=== PATIENT | female | born 1980 | race Caucasian/White ===

== ENCOUNTER 2020-08-18 08:34 | Day surgery (SDC) | payer MEDICAID ==
[2020-08-18] VITALS (9 sets, daily range): BP systolic 112–130; BP diastolic 66–83
[~2020-08-18] VITALS: Ht 160 cm; Wt 77.2 kg
[2020-08-18] MEDS ORDERED: ceFAZolin 2gm in dextrose, iso 50 ML IV ONE ×2 (09:00→11:38)
[2020-08-18] MEDS ORDERED: ALBU8.5H8 IH (09:30)
[2020-08-18] MEDS ORDERED: ALLERGY INJECTIONS IM (09:30)
[2020-08-18] MEDS ORDERED: KETOROLAC EACHEYE (09:30)
[2020-08-18] MEDS ORDERED: ALB0.5UD IH (09:30)
[2020-08-18] MEDS ORDERED: MONT10TA32 PO (09:30)
[2020-08-18] MEDS ORDERED: CETI10TA18 PO (09:30)
[2020-08-18] MEDS ORDERED: normal saline 1000ml 1,000 ML IV SCH ×2 (09:55→14:00)
[2020-08-18 10:22] LABS: BASOPHILS % (AUTO) 0.6 % (0-1); EOSINOPHILS # (AUTO) 0.1 X10'3 (0-0.9); EOSINOPHILS % (AUTO) 0.8 % (0-6); HEMATOCRIT 38.1 % (35.0-45.0); HEMOGLOBIN 12.7 g/dl (12.0-16.0); LYMPHOCYTES # (AUTO) 1.9 X10'3 (1.1-4.8); LYMPHOCYTES % (AUTO) 24.2 % (21-51); MEAN CORPUSCULAR HEMOGLOBIN 29.6 PG (27.0-31.0); MEAN CORPUSCULAR HGB CONC 33.4 g/dL (33.0-36.5); MEAN CORPUSCULAR VOLUME 88.6 FL (78-98); MEAN PLATELET VOLUME 9.4 FL (7.4-10.4); MONOCYTES # (AUTO) 0.5 X10'3 (0-0.9); MONOCYTES % (AUTO) 5.9 % (2-12); NEUTROPHILS # (AUTO) 5.3 X10'3 (1.8-7.7); NEUTROPHILS % (AUTO) 68.5 % (42-75); PLATELET COUNT 165 X10'3 (140-440); RED CELL DISTRIBUTION WIDTH 13.8 % (11.5-14.5); WHITE BLOOD COUNT 7.7 X10'3 (4.5-11.0)
[2020-08-18 10:32] LABS: ALBUMIN 3.5 G/DL (3.4-5.0); ANION GAP 10 (8-16); BLOOD UREA NITROGEN 12 MG/DL (7-18); BUN/CREATININE RATIO 14.5 (6.6-38.0); CALCIUM 8.3 MG/DL (8.5-10.1); CHLORIDE 106 MMOL/L (99-107); CREATININE 0.83 MG/DL (0.40-0.90); GLUCOSE 102 MG/DL (70-104); MAGNESIUM 2.2 MG/DL (1.5-2.4); POTASSIUM 3.9 MMOL/L (3.5-5.1); SODIUM 141 MMOL/L (135-145); TOTAL CARBON DIOXIDE 25.4 MMOL/L (24-32); eGFR 76 ML/MIN
[2020-08-18] MEDS ORDERED: fentaNYL/PF 50MCG/1 ML 2ML syringe ONE (11:38)
[2020-08-18] MEDS ORDERED: midazolam 1 mg/ML 2ml injection ONE ×4 (11:38→12:39)
[2020-08-18] MEDS ORDERED: ceFAZolin 1000mg inj ONE (11:39)
[2020-08-18] MEDS ORDERED: LIDOcaine 1% W/epiNEPHrine 1:100,000 20ml vial ONE (11:39)
--- NOTE | 2020-08-18 11:50 | NUR ---
Patient to [employer] for pacemaker insertion.
[2020-08-18] MEDS ORDERED: metoprolol tartrate 1mg/ml inj IV ONE ×2 (12:30→12:44)
--- NOTE | 2020-08-18 13:35 | NUR ---
Patient arrived back to room following pacemaker insertion. Dressing to left upper chest CDI, no bleeding or hematoma noted. VSS. Patient alert and oriented x4.
[2020-08-18] MEDS ORDERED: HYDROcodone/acetaminophen 5mg/325mg tablet PO PRN (14:00)
[2020-08-18] MEDS ORDERED: HYDROcodone/acetaminophen 10/325mg tab PO PRN (14:00)
[2020-08-18] MEDS ORDERED: ketorolac tromethamine 15mg/ml inj. IV ONE (14:20)
--- NOTE | 2020-08-18 15:55 | NUR ---
Called nette Lepe to d/c patient
--- NOTE | 2020-08-18 16:00 | NUR ---
D/C'd PIV, cannula intact; dressed with 2x2's and coban. Reviewed discharge instructions with patient. No new prescriptions; Dressing to pacemaker site CDI, no bleeding or hematoma noted. Sling to left arm in place. Patient taken out to boyfriend's car in w/c. All belongings with patient on d/c.
== END 2020-08-18 16:00 | disposition home or self-care (01) ==
LOC: SSTAY O 08:34
PROVIDERS: ATTEND Internal Medicine Cardiovascular Disease
DX: I44.1 Atrioventricular block, second degree (principal); I47.1 Supraventricular tachycardia; J45.909 Unspecified asthma, uncomplicated; K21.9 Gastro-esophageal reflux disease without esophagitis; Z79.899 Other long term (current) drug therapy; Z88.1 Allergy status to other antibiotic agents; Z88.8 Allergy status to other drugs, medicaments and biological substances; Z85.41 Personal history of malignant neoplasm of cervix uteri; Z98.890 Other specified postprocedural states; Z87.891 Personal history of nicotine dependence; Z82.0 Family history of epilepsy and other diseases of the nervous system; Z82.49 Family history of ischemic heart disease and other diseases of the circulatory system
CPT/HCPCS: 33208; 36415; 71045; 80048; 83735; 85025; 85610; 93005; 99152; 99153; C1785; C1894; C1898; J0690; J1885; J2250; J3010; J3370; J7030; A4620; A6258; J3490

== ENCOUNTER 2021-09-20 16:23 | Emergency (ER) | payer MEDICAID ==
[~2021-09-20] VITALS: Ht 165.1 cm; Wt 75.9 kg
[~2021-09-20 16:23] MED LIST: ALB0.5UD IH; ALBU8.5H17 IH; ALLERGY INJECTIONS IM; CETI10TA19 PO; KETOROLAC EACHEYE; MONT-40 PO
[2021-09-20 17:35] LABS: BASOPHILS # (AUTO) 0.1 X10'3 (0-0.2); BASOPHILS % (AUTO) 0.4 % (0-1); EOSINOPHILS # (AUTO) 0.2 X10'3 (0-0.9); EOSINOPHILS % (AUTO) 1.3 % (0-6); HEMATOCRIT 42.2 % (35.0-45.0); HEMOGLOBIN 14.4 g/dl (12.0-16.0); LYMPHOCYTES # (AUTO) 4.1 X10'3 (1.1-4.8); LYMPHOCYTES % (AUTO) 33.4 % (21-51); MEAN CORPUSCULAR HEMOGLOBIN 29.8 PG (27.0-31.0); MEAN CORPUSCULAR HGB CONC 34.1 g/dL (33.0-36.5); MEAN CORPUSCULAR VOLUME 87.4 FL (78-98); MEAN PLATELET VOLUME 8.1 FL (7.4-10.4); MONOCYTES # (AUTO) 0.8 X10'3 (0-0.9); MONOCYTES % (AUTO) 6.2 % (2-12); NEUTROPHILS # (AUTO) 7.2 X10'3 (1.8-7.7); NEUTROPHILS % (AUTO) 58.7 % (42-75); PLATELET COUNT 242 X10'3 (140-440); RED BLOOD COUNT 4.83 X10'6 (4.20-5.60); RED CELL DISTRIBUTION WIDTH 13.9 % (11.5-14.5); WHITE BLOOD COUNT 12.2 X10'3 (4.5-11.0)
[2021-09-20 17:55] LABS: D-DIMER 0.21 MG/L FEU (0-0.50)
[2021-09-20 17:58] LABS: ALANINE AMINOTRANSFERASE 18 U/L (12-78); ALBUMIN/GLOBULIN RATIO 1.2 (1.1-1.5); ALKALINE PHOSPHATASE 34 IU/L (46-116); ANION GAP 12 (8-16); ASPARTATE AMINO TRANSFERASE 12 U/L (10-37); BILIRUBIN,TOTAL 0.4 MG/DL (0.1-1.0); BLOOD UREA NITROGEN 15 MG/DL (7-18); CALCIUM 8.8 MG/DL (8.5-10.1); CHLORIDE 103 MMOL/L (99-107); CREATININE 0.88 MG/DL (0.40-0.90); GLUCOSE 98 MG/DL (70-104); SODIUM 140 MMOL/L (135-145); TOTAL CARBON DIOXIDE 25.5 MMOL/L (24-32); TOTAL PROTEIN 7.3 G/DL (6.4-8.2); eGFR 70 ML/MIN
[2021-09-20 19:30] VITALS: BP 136/89
== END 2021-09-20 19:31 | disposition home or self-care (01) ==
LOC: ER 16:24
DX: U09.9 Post COVID-19 condition, unspecified (principal); R05.9 Cough, unspecified; F12.10 Cannabis abuse, uncomplicated; Z88.8 Allergy status to other drugs, medicaments and biological substances; Z88.1 Allergy status to other antibiotic agents; Z88.5 Allergy status to narcotic agent; Z79.899 Other long term (current) drug therapy
CPT/HCPCS: 36415; 71045; 80053; 83880; 85025; 85379; 85610; 99284